=== PATIENT | male | born 1990 | race Caucasian/White ===

== ENCOUNTER 2019-09-12 11:28 | Emergency (ER) | payer OTHER ==
[2019-09-12] MEDS ORDERED: CEPHALEXIN 500 MG CAPSULE PO ONE ×2 (11:39→12:15)
[2019-09-12] MEDS ORDERED: ACETAMINOPHEN 325 MG TABLET PO ONE ×2 (11:39→12:15)
[2019-09-12] MEDS ORDERED: DIPH/PERTUSS(ACELL)/TETANUS VAC/PF 0.5 ML SYR (>=10YO) IM ONE ×2 (11:39→12:15)
--- NOTE | 2019-09-12 11:43 | ER Document Report ---
ED Medical Screen (RME) - General Chief Complaint: Laceration Stated Complaint: RIGHT HAND LACERATION Time Seen by Provider: 09/12/19 11:33 Mode of Arrival: Ambulatory Information source: Patient Notes: 49-year-old male presented to ED for complaint of laceration to the first second third and fourth finger and the hand. He states he was using a weed Damaris at home he injured his hand. He states it was about 40 minutes ago. He is alert oriented respirations regular nonlabored speaking in full sentences walks with even steady gait. His bleeding is under control at this time. He will need tetanus immunization and antibiotics. I have ordered tetanus and Keflex. He will need multiple lacerations repaired. I have greeted and performed a rapid initial assessment of this patient. A comprehensive ED assessment and evaluation of the patient, analysis of test results and completion of medical decision making process will be conducted by an additional ED providers. Physical Exam - Vital signs Vitals: Temp Pulse Resp BP Pulse Ox 97.8 F 85 16 117/72 100 09/12/19 11:34 09/12/19 11:34 09/12/19 11:34 09/12/19 11:34 09/12/19 11:34 Course - Vital Signs Vital signs: Temp Pulse Resp BP Pulse Ox 97.8 F 85 16 117/72 100 09/12/19 11:34 09/12/19 11:34 09/12/19 11:34 09/12/19 11:34 09/12/19 11:34
--- NOTE | 2019-09-12 12:16 | ER Document Report ---
ED General - General Chief Complaint: Laceration Stated Complaint: RIGHT HAND LACERATION Time Seen by Provider: 09/12/19 11:33 Mode of Arrival: Ambulatory Notes: 29-year-old man presents to the emergency department with a history of using a weed eater this morning when he accidentally put his hand under the area where in the weed Damaris cuts. He sustained injuries to his left hand lacerations x4. States that his tetanus is up-to-date. He has good sensation and normal movement of the fingers on the left hand. - Related Data Allergies/Adverse Reactions: No Known Allergies Allergy (Unverified 09/12/19 11:41) Past Medical History - General Information source: Patient - Social History Smoking Status: Unknown if Ever Smoked Family History: Reviewed & Not Pertinent Patient has suicidal ideation: No Patient has homicidal ideation: No Review of Systems - Review of Systems Notes: Constitutional: Negative for fever. HENT: Negative for sore throat. Eyes: Negative for visual changes. Cardiovascular: Negative for chest pain. Respiratory: Negative for shortness of breath. Gastrointestinal: Negative for abdominal pain, vomiting or diarrhea. Genitourinary: Negative for dysuria. Musculoskeletal: Negative for back pain. Skin: Lacerations left thumb, index finger Neurological: Negative for headaches, weakness or numbness. 10 point ROS negative except as marked above and in HPI. Physical Exam - Vital signs Vitals: Temp Pulse Resp BP Pulse Ox 97.8 F 85 16 117/72 100 09/12/19 11:34 09/12/19 11:34 09/12/19 11:34 09/12/19 11:34 09/12/19 11:34 - Notes Notes: PHYSICAL EXAMINATION: Physical Exam: General: Well-nourished well-developed 29-year-old man in no acute distress HEENT: NC/AT, pupils equal round and reactive to light, MM moist,nares clear, oropharynx clear, airway patent Neck: supple, no adenopathy, no masses. Good range of motion Lungs: clear, no wheezing, no rales no rhonchi CVS: Regular rate and rhythm no murmur gallop or rub Abdomen: Soft, active, nontender, no masses, no hepatosplenomegaly Ext: No edema, clubbing or cyanosis. Neuro: Alert and responsive, moving all 4 extremities on command, cranial nerves intact, no focal findings Skin: 1.5 cm laceration left thumb metacarpal phalangeal joint, active bleeding. 2 cm laceration left index finger MIPJ, dorsal aspect with active bleeding, neurovascular intact, superficial laceration third finger, no active bleeding. PSYCH: Normal mood, normal affect. Course - Re-evaluation Re-evalutation: 09/12/19 13:36 Patient notes that his tetanus is up-to-date, he was given immunizations 2 years ago before leaving the . Suture repair was performed and no complications arising. Patient is given a prescription for Keflex x5 days and suture removal in 10 days. - Vital Signs Vital signs: Temp Pulse Resp BP Pulse Ox 97.9 F 81 16 102/63 100 09/12/19 13:51 09/12/19 13:51 09/12/19 13:51 09/12/19 13:51 09/12/19 13:51 Procedures - Laceration/Wound Repair Left Hand Time completed: 13:30 Wound length (cm): 3.5 Wound's Depth, Shape: Linear, Flap Anesthetic type: 1% Lidocaine Volume Anesthetic (mLs): 5 Wound explored: Clean Wound Repaired With: Sutures Suture Size/Type: 5:0, Prolene Number of Sutures: 11 Layer Closure?: No Post-procedure wound care: Sterile dressing applied Post-procedure NV exam normal: Yes Complications: Yes Discharge - Discharge Clinical Impression: Laceration of left hand, Laceration of left thumb, Laceration of left index finger Condition: Good Disposition: HOME, SELF-CARE Instructions: Laceration Care ([facility]), Prophylactic Antibiotic ([facility]) Additional Instructions: You were seen in the emergency department today with lacerations to your left hand thumb and index finger. Sutures were placed, please change that dressing on a daily basis applied Neosporin. Sutures may be removed in 10 days. Please take the antibiotics as prescribed. If you are noticing concerns for infection or other changes you may return to the emergency department for recheck. HOME CARE INSTRUCTIONS & INFORMATION: Thank you for choosing us for your medical needs. We hope you're satisfied with the care you received. After you leave, you must properly care for your problem and, at the same time, observe its progress. Any condition can change. Some illnesses can change rapidly over hours or days. If your condition worsens, return to the Emergency Department or see your physician promptly. ABOUT YOUR X-RAYS AND EKG'S: If you had an EKG or X-rays taken, they have been read by the Emergency Physician. The X-rays and EKG's will also be read by a Radiologist or Specimen Technician within 24 hours. If discrepancies are noted, you will be notified by telephone. Please be certain the ED has a correct telephone number & address where you can be reached. Also, realize that some fractures or abnormalities do not show up on initial X-rays. If your symptoms continue, see your physician. ABOUT YOUR LABORATORY TEST: If you had laboratory tests, the results have been reviewed by the Emergency Physician. Some test results (for example cultures) may not be available for several days. You will be contacted if any test result shows you need additional treatment. Please be certain the ED has a correct telephone number and address where you can be reached. ABOUT YOUR MEDICATIONS: You will receive instructions on how to take your medicine on the prescription label you receive. Additional information may be provided by the Pharmacy. If you have questions afterwards, call the ED for clarification or further instructions. Some prescribed medications may cause drowsiness. Do not perform tasks such as driving a car or operating machinery without consulting your Pharmacist. If you feel you need a refill of pain medication, your condition will need re-evaluation. Please do not call for a refill of any medication. ABOUT YOUR SIGNATURE: Signature of this document acknowledges to followin. Understanding that you received emergency treatment and that you may be released before al medical problems are known or treated. Please be certain the ED has a correct phone number & address where you can be reached. 2. Acknowledgement that you will arrange for follow-up care as recommended. 3. Authorization for the Emergency Physician to provide information to your follow-up Physician in order to maximize your care. AT ANY TIME, IF YOUR SYMPTOMS CHANGE SIGNIFICANTLY OR WORSEN OR YOU DEVELOP NEW SYMPTOMS, RETURN TO THE EMERGENCY DEPARTMENT IMMEDIATELY FOR RE-EVALUATION. OUR GOAL IS TO PROVIDE EXCELLENT MEDICAL CARE! WE HOPE THAT WE HAVE MET YOUR EXPECTATIONS DURING YOUR EMERGENCY DEPARTMENT VISIT AND THAT YOU FEEL YOU HAVE RECEIVED EXCELLENT CARE! Prescriptions: Cephalexin Monohydrate [Keflex 500 mg Capsule] 500 mg PO Q8 5 Days capsule
[2019-09-12] MEDS ORDERED: LIDOCAINE 1% INJ-PF (10 MG/ML) 30 ML SDV INJ ONE (12:22)
--- NOTE | 2019-09-12 13:15 | RADIOLOGY REPORT (SQ) ---
EXAM DESCRIPTION: HAND RIGHT 3 VIEWS IMAGES COMPLETED DATE/TIME: 09/12/2019 12:22 pm REASON FOR STUDY: Lacerations to first second third fourth finger an COMPARISON: None. EXAM PARAMETERS: NUMBER OF VIEWS: Three views. TECHNIQUE: AP, lateral and oblique radiographic images acquired of the right hand. LIMITATIONS: Overlying bandage material. FINDINGS: MINERALIZATION: Normal. BONES: No acute fracture or dislocation. No worrisome bone lesions. JOINTS: No effusions. SOFT TISSUES: No foreign body. OTHER: No other significant finding. IMPRESSION: No fracture or foreign body. TECHNICAL DOCUMENTATION: JOB ID: [id number] 2010 [employer]- All Rights Reserved Reading location - IP/workstation name: [email or web address]
[2019-09-12 13:51] VITALS: BP 102/63
== END 2019-09-12 13:51 | disposition home or self-care (01) ==
LOC: ER 11:28
DX: S61.412A Laceration without foreign body of left hand, initial encounter (principal); S61.211A Laceration without foreign body of left index finger without damage to nail, initial encounter; S61.012A Laceration without foreign body of left thumb without damage to nail, initial encounter; W26.8XXA Contact with other sharp object(s), not elsewhere classified, initial encounter; Y92.009 Unspecified place in unspecified non-institutional (private) residence as the place of occurrence of the external cause; Z23 Encounter for immunization
CPT/HCPCS: 12002; 99282; 73130; 90715; J3490